=== PATIENT | male | born 1990 | race Hispanic/Latino ===

== ENCOUNTER 2017-11-17 20:55 | Emergency (ER) | payer SELFPAY ==
[~2017-11-17] VITALS: Ht 180.3 cm; Wt 98.9 kg
[~2017-11-17 20:55] MED LIST: AMOX TR-K CLV1 EAC2 PO; TYLENOL WITH C1 EACH PO
--- NOTE | 2017-11-17 23:47 | Diagnostic Imaging Report ---
SHOULDER RIGHT COMPLETE HISTORY: Trauma, point tenderness to the right AC joint COMPARISON: None FINDINGS: Bones: No displaced fracture. Osseous alignment is within normal limits. Joints: The joint spaces are well-maintained. Soft tissues: The soft tissues appear unremarkable. IMPRESSION: No acute radiographic abnormality. Signed by: Dr. Subhash Weiss M.D. on 11/17/2017 11:44 PM
== END 2017-11-18 00:41 | disposition home or self-care (01) ==
LOC: ER 20:55
DX: M25.511 Pain in right shoulder (principal); S43.51XA Sprain of right acromioclavicular joint, initial encounter; S43.421A Sprain of right rotator cuff capsule, initial encounter; Y93.B1 Activity, exercise machines primarily for muscle strengthening; Y92.39 Other specified sports and athletic area as the place of occurrence of the external cause
CPT/HCPCS: 99283